=== PATIENT | male | born 1990 | race Caucasian/White ===

== ENCOUNTER 2019-05-24 19:04 | Emergency (ER) | payer OTHER ==
[~2019-05-24] VITALS: Ht 167.6 cm; Wt 57.2 kg
== END 2019-05-24 22:38 | disposition home or self-care (01) ==
LOC: ER 19:04
DX: K52.9 Noninfective gastroenteritis and colitis, unspecified (principal); E86.0 Dehydration

== ENCOUNTER 2020-01-14 14:52 | Emergency (ER) | payer OTHER ==
[~2020-01-14] VITALS: Ht 167.6 cm; Wt 569.7 kg
== END 2020-01-14 21:42 | disposition home or self-care (01) ==
LOC: ER 14:52
DX: K52.89 Other specified noninfective gastroenteritis and colitis (principal)

== ENCOUNTER 2020-08-02 14:12 | Emergency (ER) | payer OTHER ==
[~2020-08-02] VITALS: Ht 167.6 cm; Wt 56.7 kg
[2020-08-02] MEDS ORDERED: ADULT ASPIRIN81 MG (14:21)
== END 2020-08-02 15:24 | disposition home or self-care (01) ==
LOC: ER 14:12
DX: S61.221A Laceration with foreign body of left index finger without damage to nail, initial encounter (principal); W26.0XXA Contact with knife, initial encounter; Y93.89 Activity, other specified; Y92.098 Other place in other non-institutional residence as the place of occurrence of the external cause; Y99.8 Other external cause status